=== PATIENT | female | born 1995 | race Hispanic/Latino ===

== ENCOUNTER 2018-09-02 23:18 | Emergency (ER) | payer MEDICAID, OTHER ==
[2018-09-02] MEDS ORDERED: DEXAMETHASONE SOD PHOSPHATE 10MG/ML 1ML VIAL ONE (23:42)
[2018-09-03] MEDS ORDERED: KETOROLAC TROMETHAMINE 60 MG/2 ML VIAL ONE (00:41)
== END 2018-09-03 01:26 | disposition home or self-care (01) ==
LOC: EDH 23:18
DX: R59.9 Enlarged lymph nodes, unspecified (principal); J02.9 Acute pharyngitis, unspecified
CPT/HCPCS: 81025; 87880; 96372 ×2; 99284; J1100; J1885